=== PATIENT | male | born 2005 | race Caucasian/White ===

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

== ENCOUNTER 2025-04-06 23:11 | Emergency (ER) | payer SELFPAY ==
[~2025-04-06] VITALS: Ht 182.9 cm; Wt 72.7 kg
[2025-04-07] MEDS: LIDOcaine 1% W/epiNEPHrine 1:100,000 20ml vial SQ ONE (01:04)
[2025-04-07] MEDS ORDERED: SULF1TAB49 PO (01:30)
--- NOTE | 2025-04-07 01:30 | Physician Documentation ---
History of Present Illness ~ Chief Complaint: Facial Swelling Stated Complaint: LIP SWELLING Time Seen by MD: 00:45 Primary Medical Doctor: None HPI Patient has not abscess of the lower lip. He has started three days ago it has been progressively getting worse his entire lower lip is swollen. He has anterior cervical lymphadenopathy in the left side. That is also painful. No fevers or chills or any other symptoms. Tetanus Within 5 Years: No Medication Reconciliation Allergies: Coded Allergies: No Known Allergies (Unverified , 10/16/22) Scheduled Olanzapine (Zyprexa), 1 TAB PO HS Olanzapine (Zyprexa), 1 TAB PO DAILY Quetiapine Fumarate (Seroquel), 1 TAB PO HS Past Medical History Past Medical History: *PSYCH*, Bipolar Past Surgical History: noncontributory Other Past Surgical History: Testicular surgery Alcohol Use: None Drug Use: marijuana Lives In: Home Physical Exam Vital Signs: Temperature: 98.1, Heart Rate: 92, Respiratory Rate: 16, BP: 156/97, Pulse Oximetry: 98, Weight: 72.730 Oxygen Flow Rate: 0 Physical Exam General: Awake and Alert, no acute distress. HEENT: Conjunctiva pink, Sclera clear, tire lower lip is swollen on the left side inferior to the vermilion border is a small break in the skin that is scabbed over. Neck: Supple Resp: Unlabored. Heart: Good perfusion Abdomen: Nondistended Extremities: No cyanosis,clubbing or edema. Skin: Warm and Dry. Neuro: no focal deficits Procedures Procedures Incision and drainage of lip abscess. The skin was cleaned with a Betadine and usual sterile manner. Prior to the procedure was given Dilaudid 1 mg IM. I injected lidocaine with epinephrine locally. Made a small incision with a 11. Blade loculations were broken up small amount of purulent drainage was released. Progress Results/Orders Results/Orders Completed Orders - LAURE ALVARADO MD Hydromorphone 1 Mg/Ml/Pf (Dilaudid Inj.) (04/07/25 00:50) Lidocaine 1% W/Epi 1:100,000 (Xylocaine (04/07/25 01:00) Medications Received in ER Medications (Trade) Dose Ordered Sig/Steffi Route PRN Reason Start Time Stop Time Status Last Admin Dose Admin (Dilaudid inj.) 1 mg ONCE ONCE IM 04/07/25 00:50 04/07/25 00:51 DC 04/07/25 00:55 1 MG (Xylocaine 1%-EPI 1:100,000) 30 ml ONCE ONCE SQ 04/07/25 01:00 04/07/25 01:02 DC 04/07/25 01:04 30 ML Vital Signs 04/06/25 23:13 Temp 98.1 Pulse 92 Resp 16 B/P (MAP) 156/97 Pulse Ox 98 O2 Flow Rate 0 Medical Decision Making Findings Patient is here with a lower lip abscess. So an incision and drainage was done. He was placed on Bactrim and discharged. Departure Disposition: HOME / SELF CARE / HOMELESS Impression: Primary Impression: Lip abscess Condition: Stable Discharge Instructions: Abscess, Care After Referrals: NO PRIMARY CARE PROVIDER (PCP) Prescriptions Sulfamethoxazole/Trimethoprim (Bactrim Ds Tablet) 800 Mg-160 Mg Tablet 1 TAB PO Q12H for 7 Days, #14 TAB Prov: LAURE ALVARADO MD 04/07/25 Education Educated: Patient Educated regarding: diagnosis, treatment, prognosis, need for follow up Signature Scribe Signature: no scribe Attestation: no scribe LAURE ALVARADO MD Apr 07, 2025 01:30
[2025-04-07 01:47] VITALS: BP 142/86; PULSE 86; RESP 18; TEMP 98.6; O2SAT 99
[2025-04-07] MEDS: sulfamethoxazole/trimethoprim DS (800/160mg) tablet PO ONE (01:47)
== END 2025-04-07 01:48 | disposition home or self-care (01) ==
LOC: ER 23:12
DX: K13.0 Diseases of lips (principal); F31.9 Bipolar disorder, unspecified; F12.90 Cannabis use, unspecified, uncomplicated
CPT/HCPCS: 10060; 96372; 99283; J1171; J3490